=== PATIENT | female | born 1955 | race Caucasian/White ===

== ENCOUNTER 2017-06-19 05:35 | Inpatient (IN) | payer BC ==
[2017-06-08 11:10] VITALS: BMI 26.9
[~2017-06-19 05:35] MED LIST: ACETAMINOPHEN TAB 500 MG TAB PO ONE; DEXAMETHASONE SOD PHOSPHATE 10 MG/ML 1 ML VIAL IV ONE; HYDROmorphone 0.5 MG/0.5 ML SYRINGE IVP PRN; LIDOCAINE 1% 20 ML VIAL (10MG/ML) FOR IV START INTRADERMA PRN; MELOXICAM 7.5 MG TAB PO ONE; MIDAZOLAM 2 MG/2 ML VIAL IV PRN; ONDANSETRON 4 MG/2 ML VIAL IVP ONE; SCOPOLAMINE 1.5MG/72HR PATCH TRANSDERM ONE; TRANEXAMIC ACID 1,000 MG in SODIUM CHLORIDE 0.9% 100 ML IVPB ONE; VANCOMYCIN 1,000 MG in SODIUM CHLORIDE 0.9% 250 ML IVPB ONE
[2017-06-19] MEDS ORDERED: LIDOCAINE 1% 20 ML VIAL (10MG/ML) FOR IV START INTRADERMA ONE (06:12)
[2017-06-19] MEDS: LACTATED RINGERS 1,000 ML IV SCH ×2 (06:12→19:37)
[2017-06-19 06:28] LABS: Appearance,Urine Clear (Clear); Bilirubin,Urine Negative (Negative); Glucose,Urine (UA) Negative (Negative); Ketones,Urine Negative (Negative); Leukocyte Esterase,Urine Small (Negative); Mucus,Urine Few /hpf; Nitrite,Urine Negative (Negative); Particle Count 4029; Protein,Urine Trace (Negative); RBC,Urine 2 /hpf (0-5); Specific Gravity,Urine 1.016 (1.001-1.035); Squamous Epithelial Cell,Urine 1 /hpf (0-4); UA Billing (MACRO vs. MICRO) MICRO; Urobilinogen,Urine <2.0 mg/dL (<2.0); WBC,Urine 6 /hpf (0-5)
[2017-06-19] MEDS ORDERED: LIDOCAINE 1% INJ 10MG/ML (20 ML MDV) ONE (09:10)
[2017-06-19] MEDS ORDERED: MIDAZOLAM 2 MG/2 ML VIAL ONE (09:10)
[2017-06-19] MEDS ORDERED: fentaNYL (PF) 50 MCG/ML 2 ML AMP ONE (09:10)
[2017-06-19] MEDS ORDERED: PROPOFOL 10 MG/ML 20 ML VIAL IV ONE (09:10)
[2017-06-19] MEDS ORDERED: HYDROmorphone (PF) 1 MG/ML ONE (09:10)
[2017-06-19] MEDS ORDERED: diphenhydrAMINE 50 MG/ML 1 ML VIAL ONE (09:10)
[2017-06-19] MEDS ORDERED: ROPIVACAINE 246.25 MG, EPINEPHrine 0.5 MG, KETOROLAC 30 MG, cloNIDine HCL/PF 80 MCG, WA... MISCELLANE ONE ×5 (09:17)
[2017-06-19] MEDS ORDERED: ceFAZolin 3,000 MG in SODIUM CHLORIDE 0.9% IRRIGATIO 3,000 ML IRRIGATION ONE (10:51)
[2017-06-19] MEDS ORDERED: LACTATED RINGERS 1,000 ML IV ONE (11:02)
--- NOTE | 2017-06-19 11:28 | P.OP ---
Date of Procedure: 06/19/17 Procedure(s) Performed: PREOPERATIVE DIAGNOSIS: 1. Left hip severe osteoarthritis 2. Relative limb length inequality secondary to severe scoliosis POSTOPERATIVE DIAGNOSIS: Left hip severe osteoarthritis 2. Relative limb length inequality secondary to severe scoliosis OPERATION: Left hip total replacement arthroplasty (uncemented implantation with metal on ceramic articulation). ANESTHESIA: Spinal ESTIMATED BLOOD LOSS: 150 ml. WIRE FRAME MAKER: Akosua Hernandez PA-C (assistance with: patient positioning, retraction, exposure, hemostasis, leg positioning, implantation, irrigation, closure, dressing) COMPLICATIONS: None apparent. COMPONENTS IMPLANTED: Errol continuum acetabular cup with cluster holes; continuum longevity 15 elevated liner, 32 mm id; Errol VerSys Fiber Metal stem ; VerSys 32 mm femoral head with +7 mm neck length extension INDICATIONS: Marta is a 61-year-old female with significant end-stage osteoarthritis involving the left hip and commensurate severe symptoms. She presents to the operating room today for total hip replacement. Of note, she has a relative limb length inequality with the right leg being longer than the left by approximately 1.5 cm. I have discussed the steps of the operation as well as potential risks and complications as being inclusive of, but not limited to: Leading, infection, scarring, discomfort, or vessel and/or nerve damage, need for further surgery, loosening, dislocation, wear, osteolysis, limb length inequality, fracture, blood clot, pulmonary embolism, , persistent limp, and other risks. The patient is aware these risks and wishes to proceed with surgery and has signed a consent form. PROCEDURE: After appropriate consent was obtained, the patient was taken to the operating room and placed in supine position. Spinal anesthetic was administered and after confirmation of adequate anesthesia, the patient was placed into the lateral decubitus position with the left side up. Care was taken to make sure that all pressure points were adequately padded and he was stabilized to the table with a [place] hip positioner. The left hip was prepped and draped in the usual aseptic fashion using a combination of ChloraPrep and alcohol. [place] drape was used for the case and the patient received intravenous antibiotics prior to the incision. "Time out" was called , confirming patient identity, side, procedure, availability of implants and administration of antibiotics. Vancomycin was administered over 2 hours with the infusion completing within a few minutes of incision. The incision was created directly over the greater trochanter and carried slightly posteriorly for a posterior approach to the hip. The incision was then deepened down to subcutaneous tissue and fascia kamini. Fascia kamini was split in line with the incision and split proximally along the fibers of the gluteus bradley. The underlying fibers of the muscle were teased apart using finger dissection and bleeding vessels were picked up and coagulated. Retractor was then placed posteriorly consisting of a blunt [place]. The short external rotators and capsule were exposed using good visualization of the attachment of the external rotators to the femur was established. The short external rotators and capsule were released using electrocautery from their femoral attachments. A hockey stick shaped incision was created in the capsule. Joint fluid was evacuated and the patient's hip was able to be dislocated fairly easily. The patient's femoral head was severely arthritic with eburnated bone present and a 360 degrees hsu of osteophytes. The femoral neck cut was created approximately 1 cm superior to the lesser trochanter using a reciprocating saw. The femoral head and neck fragment was removed and attention was then directed to the acetabulum. An anterior acetabular retractor was applied followed by posterior retraction of the capsule with a [place] retractor. This afforded good visualization into the acetabular cavity. Soft tissue was removed and residual cartilage within the acetabular vault was removed using a curette. Labrum was removed using a long-handled knife. Attention was then directed to reaming. The size 44 reamer was used first, followed by increasing increments until the final size reamer was used. Please see the implantation sheet for exact sizes used for the components. Once the final reamer had been utilized to expand the socket it was noted that there was a good supportive bone around the acetabular socket and no further reaming needed to be performed. The trial the same size as the last reamer used was then impacted into the acetabular vault and found to have good fit. The acetabular component, one size (2mm) greater than the trial was then called for. The cluster holes were placed posteriorly and the component was impacted in a position of approximately 40 degrees abduction and 20 degrees anteversion. This matched this patient's [place] anteversion and it was noted that the cup had excellent stability without need for additional screw fixation. Attention was then directed to the acetabular liner. The anteversion and abduction angle of the component was noted to be very good. A 15 elevated liner was used and locked into position. Osteophytes around the posterior and inferior aspect of the acetabulum were trimmed as necessary to prevent any impingement. Attention was then directed back to the proximal femur. Retractors were placed around the proximal femur and box osteotome was used followed by canal finder and trochanteric reamer. Cylindrical reaming was performed. Progressive broaching was then performed starting with a #10 broach and progressing final size, in a position of 15 degrees anteversion. [place] anteversion was within 5 degrees of stem position. The final size broach had excellent fit and fill of the patient's metaphysis and diaphysis. Trial reduction was then performed starting with size 32 mm femoral head and various neck combination of stability , limb length equality, and soft tissue tension. Trial components were then removed. The canal was lavaged and the final size femoral stem component was impacted into position. The implant fit very well and had excellent stability. The femoral head was then impacted onto the [place] taper. Blood and debris were removed from the acetabular component and the hip was then reduced and checked for stability, limb length and soft tissue tension. These parameters found to be satisfactory, the wound was then thoroughly irrigated with normal saline. Final hemostasis was obtained using electrocautery and IV tranexamic acid, 1 g given at the time of prepping and draping, and another 1 g given at the time of closure. Local anesthetic solution consisting of ropivacaine with epinephrine, clonidine, and ketorolac was also used throughout the case targeting the capsule , fascia, and skin. Closure of the capsule was performed meticulously using #3 Vicryl suture. Four [id number] sutures were placed in the posterior capsule along with repair of the external rotators. The fascia kamini was then repaired using combination of #3 Vicryl suture in interrupted fashion and Quill and running fashion. 2-0 Vicryl suture was used for the subcutaneous tissues and 3-0 Quill for the skin. Dermabond or Steri-Strips were then applied. The patient tolerated the procedure well. There were no complications and the wound bed was dry and there was no need for drain placement. Sterile dressing was then applied and the patient was carefully removed from the operating room table , placed on the stretcher and was taken to the recovery room in stable condition. Sponge and needle counts were correct.
[2017-06-19] MEDS ORDERED: HYDROmorphone 1 MG/ML 1 ML SYRINGE IVP PRN ×2 (11:29)
[2017-06-19] MEDS ORDERED: hydrOXYzine PAMOATE 25 MG CAP PO PRN (11:29)
[2017-06-19] MEDS ORDERED: ONDANSETRON 4 MG/2 ML VIAL IVP PRN (11:29)
[2017-06-19] MEDS ORDERED: HYDROcodone/APAP 5-325MG 1 EACH TAB PO PRN (11:29)
[2017-06-19] MEDS ORDERED: MAGNESIUM HYDROXIDE 2,400 MG/10 ML CUP PO PRN (11:29)
[2017-06-19] MEDS ORDERED: NALOXONE 0.4 MG/ML 1 ML VIAL IV PRN (11:29)
--- NOTE | 2017-06-19 12:04 | XR ---
EXAMINATION TYPE: XR Hip Limited LT DATE OF EXAM: 06/19/2017 CLINICAL HISTORY: Left hip pain and osteoarthritis. TECHNIQUE: Single AP portable view of left hip is obtained immediately postoperatively. COMPARISON: None. FINDINGS: Metallic hardware from left hip arthroplasty is seen and appears satisfactory in alignment and position. There is evidence of recent surgery with subcutaneous gas noted laterally. IMPRESSION: Metallic hardware from left hip arthroplasty is satisfactory in position.
[2017-06-19] MEDS: ceFAZolin IN SWFI 2 GM/20 ML SYRINGE IVP SCH (16:50)
[2017-06-19] MEDS: ASPIRIN 325 MG TAB PO SCH (20:37)
[2017-06-19] MEDS ORDERED: SENNOSIDES-DOCUSATE SODIUM 1 EACH TAB PO SCH (21:00)
[2017-06-19] MEDS ORDERED: AMITRIPTYLINE HCL 50 MG TAB PO SCH (21:00)
[2017-06-20] MEDS: LACTATED RINGERS 1,000 ML IV SCH ×2 (00:05→05:56)
[2017-06-20] MEDS: ceFAZolin IN SWFI 2 GM/20 ML SYRINGE IVP SCH (00:09)
[2017-06-20 07:21] LABS: Basophils % (A) 0 %; CH 26.4; CHCM 31.6; Eosinophils % (A) 0 %; HCT 35.8 % (34.0-46.0); HDW 2.41; HGB 11.1 gm/dL (11.4-16.0); Luc # (Auto) 0.06; Luc % (Auto) 1; Lymphocytes # (A) 1.5 k/uL (1.0-4.8); Lymphocytes % (A) 16 %; MCH 25.9 pg (25.0-35.0); MCV 83.7 fL (80.0-100.0); Mean Platelet Volume 6.3; Monocytes # (A) 0.6 k/uL (0-1.0); Monocytes % (A) 6 %; Neutrophils # (A) 7.2 k/uL (1.3-7.7); Neutrophils % (A) 77 %; RBC 4.28 m/uL (3.80-5.40); RDW 14.2 % (11.5-15.5); WBC 9.4 k/uL (3.8-10.6); WBC (Perox) 9.46
--- NOTE | 2017-06-20 08:07 | CONS ---
CONSULTATION DATE OF CONSULTATION: 06/19/2017 REASON FOR CONSULTATION: Medical management requested by Dr. Orta. CONSULTATION: This is a pleasant 61-year-old patient of Dr. Wilson who has undergone a left total hip arthroplasty. Chronic stable medical conditions include osteoarthritis, otherwise, kidney stones diagnosed last week, scoliosis and osteogenesis imperfecta. Postprocedure, pain is relatively controlled at the operative site. No nausea, vomiting. No chest pain. No shortness of breath. Denies any cardiac history. REVIEW OF SYSTEMS: CONSTITUTIONAL: None. HEENT: None. RESPIRATORY: None. CARDIOVASCULAR: None. GASTROINTESTINAL: None. GENITOURINARY: None. MUSCULOSKELETAL: Aches and pains in the joints. DERMATOLOGICAL: None. HEMATOLOGICAL: None. LYMPHATIC: None. PSYCHIATRY: None. NEUROLOGICAL: None. PAST MEDICAL HISTORY: Osteoarthritis, kidney stones, scoliosis, osteogenesis imperfecta. PAST SURGICAL HISTORY: , hysterectomy, tonsillectomy, neck fusion, lithotripsy recently. SOCIAL HISTORY: Does not smoke or drink alcohol. . FAMILY HISTORY: Reviewed, noncontributory to presentation. HOME MEDICATIONS: Ultram 50 mg q.6 p.r.n., Macrobid 100 mg p.o. q.12, women's multivitamin 1 tablet p.o. daily, Flexeril 10 mg p.o. t.i.d. p.r.n., vitamin D3 five thousand units p.o. daily, calcium 600 mg p.o. daily, Elavil 50 mg p.o. q.h.s., Senokot S 1 tablet p.o. b.i.d., [place] 5 one to two tablets q.4 p.r.n., aspirin 325 p.o. b.i.d. started for surgery. ALLERGIES: SULFA. PHYSICAL EXAMINATION: Temperature 98.4, pulse 112, respiratory 18, blood pressure 125/68, pulse ox 99% on room air. GENERAL APPEARANCE: Average build. Propped up in bed, awake, comfortable. EYES: Pupils equal, conjunctivae normal. HEENT: Oral cavity normal. NECK: JVD not raised. Mass not palpable. RESPIRATORY: Effort normal. LUNGS: Clear. CARDIOVASCULAR: First and second sounds normal. No edema. ABDOMEN: Soft, nontender. Liver and spleen not palpable. LYMPHATIC: No lymph nodes palpable in neck or axillae. PSYCHIATRY: Alert and oriented x3, mood and affect was normal. NEUROLOGICAL: Pupils equal. Cranial nerves grossly intact. Power and sensation grossly intact. MUSCULOSKELETAL: Dressing over the left hip. Some evidence of osteoarthritis especially in the hands. INVESTIGATION: UA noted and patient's blood work from 06/13 shows a white count 6.6, hemoglobin 13.4, potassium 4.2. BUN and creatinine are normal. ASSESSMENT: 1. Left total hip arthroplasty. 2. Primary osteoarthritis. 3. Kidney stones with recent lithotripsy. 4. Scoliosis. 5. Osteogenesis imperfecta. PLAN: For DVT prophylaxis, patient is on aspirin, Venodyne boots. Other home medications are resumed. Care was discussed with the patient. The patient should follow up with Dr. Soriano on discharge. Thank you, Dr. Orta. SONJA / PHIL: [phone] /
[2017-06-20] MEDS: ASPIRIN 325 MG TAB PO SCH (08:15)
[2017-06-20] MEDS: HYDROcodone/APAP 5-325MG 1 EACH TAB PO PRN ×2 (08:16→15:16)
[2017-06-20] MEDS ORDERED: CYCLOBENZAPRINE 10 MG TAB PO PRN (08:49)
[2017-06-20] MEDS ORDERED: traMADol 50 MG TAB PO PRN (08:49)
[2017-06-20] MEDS ORDERED: MELOXICAM 7.5 MG TAB PO SCH (09:00)
--- NOTE | 2017-06-20 09:38 | P.DS ---
Providers Date of admission: 06/19/17 05:35 Expected date of discharge: 06/20/17 Attending physician: Von Orta Consults: 06/19/17 11:29 Consult Physician Routine Consulting Provider: Roshan Hopkins Consult Reason/Comments: medical management Do you want consulting provider notified?: Yes Primary care physician: Arsh Soriano - Discharge Diagnosis(es) (1) Primary localized osteoarthritis of left hip Current Visit: Yes Status: Acute (2) Status post left hip replacement Current Visit: Yes Status: Acute Hospital Course: This is a 61-year-old female with known history of degenerative arthritis of the left hip. The patient presents for evaluation. After discussion and consideration patient elects to proceed with total hip arthroplasty. The patient is seen preoperatively by Dr. Soriano and cleared for surgery. Patient is admitted to [facility] on 06/19/2017 for total left hip arthroplasty. The procedures performed without complication or sequelae. The patient is doing well postoperatively. Labs and vital signs are stable on day of discharge. On day of discharge patient's hip incision is healing well. There is minimal erythema. There is no drainage noted at this time. There is minimal soft tissue swelling to the hip and thigh. Patient has full foot and ankle motion without difficulty or pain. Neurovascular status to the left lower extremity is intact. Patient is discharged to home in good condition. Pertinent Studies: Laboratory Tests 06/20/17 06:54 WBC 9.4 RBC 4.28 Hgb 11.1 L Hct 35.8 Patient Condition at Discharge: Stable Plan - Discharge Summary Discharge Rx Participant: Yes New Discharge Prescriptions: New Aspirin 325 mg PO BID #120 tab HYDROcodone/APAP 5-325MG [[place] 5-325] 1 - 2 each PO Q4-6H PRN #90 tab PRN Reason: Pain Sennosides-Docusate Sodium [Senokot-S] 1 tab PO BID #60 tablet No Action traMADol HCL [Ultram] 50 mg PO Q6HR PRN PRN Reason: Pain Amitriptyline HCl [Elavil] 50 mg PO HS Cyclobenzaprine [Flexeril] 10 mg PO TID PRN PRN Reason: Muscle Spasm Cholecalciferol [Vitamin D3] 5,000 unit PO DAILY Multivit with Calcium,Iron,Min [Women's Multivitamin] 1 tab PO DAILY Calcium Carbonate [Calcium] 600 mg PO DAILY Nitrofurantoin Monohyd/M-Cryst [Macrobid] 100 mg PO Q12HR Discharge Medication List Amitriptyline HCl [Elavil] 50 mg PO HS 06/08/17 [History] Calcium Carbonate [Calcium] 600 mg PO DAILY 06/08/17 [History] Cholecalciferol [Vitamin D3] 5,000 unit PO DAILY 06/08/17 [History] Cyclobenzaprine [Flexeril] 10 mg PO TID PRN 06/08/17 [History] Multivit with Calcium,Iron,Min [Women's Multivitamin] 1 tab PO DAILY 06/08/17 [ History] traMADol HCL [Ultram] 50 mg PO Q6HR PRN 06/08/17 [History] Nitrofurantoin Monohyd/M-Cryst [Macrobid] 100 mg PO Q12HR 06/15/17 [History] Aspirin 325 mg PO BID #120 tab 06/19/17 [Rx] HYDROcodone/APAP 5-325MG [[place] 5-325] 1 - 2 each PO Q4-6H PRN #90 tab 06/19/17 [Rx] Sennosides-Docusate Sodium [Senokot-S] 1 tab PO BID #60 tablet 06/19/17 [Rx] Follow up Appointment(s)/Referral(s): Akosua Hernandez PAC [PHYSICIAN MAPPING SUPERVISOR] - 07/03/17 1:45 pm Activity/Diet/Wound Care/Special Instructions: toe touch weight bearing left lower extremity with walker. May shower if no drainage from incision. [facility] [id number] Discharge Disposition: HOME WITH HOME HEALTH SERVICES
[2017-06-20] MEDS ORDERED: CALCIUM CARBONATE 500 MG CHEWABLE PO SCH (12:00)
[2017-06-20] MEDS ORDERED: MULTIVITAMINS, THERA 1 EACH TAB PO SCH (12:00)
[2017-06-20] MEDS ORDERED: CHOLECALCIFEROL 1,000 UNIT TAB PO SCH (12:00)
[2017-06-20] MEDS ORDERED: SUCCINYLCHOLINE CHLORIDE 100 MG/5 ML SYR IV ONE (12:59)
[2017-06-20] MEDS ORDERED: ETOMIDATE 2 MG/ML 10 ML VIAL ONE (12:59)
[2017-06-20] MEDS ORDERED: CISATRACURIUM 2 MG/ML 5 ML VIAL IV ONE (12:59)
[2017-06-20] MEDS ORDERED: NEOSTIGMINE 1 MG/ML 10 ML VIAL ONE (12:59)
[2017-06-20] MEDS ORDERED: diphenhydrAMINE 50 MG/ML 1 ML VIAL ONE (12:59)
[2017-06-20] MEDS ORDERED: HYDROmorphone (PF) 1 MG/ML ONE (12:59)
[2017-06-20] MEDS ORDERED: LIDOCAINE 1% INJ 10MG/ML (20 ML MDV) ONE (12:59)
[2017-06-20] MEDS ORDERED: GLYCOPYRROLATE 0.2 MG/ML 2 ML VIAL ONE (12:59)
[2017-06-20] MEDS ORDERED: fentaNYL (PF) 50 MCG/ML 2 ML AMP ONE (12:59)
[2017-06-20 14:28] VITALS: BP 116/68; PULSE 104; RESP 16; TEMP 98.5
--- NOTE | 2017-06-20 14:49 | PN ---
PROGRESS NOTE DATE OF SERVICE: 06/20/17. PRESENTING COMPLAINT: Left hip surgery. INTERVAL HISTORY: Patient is status post left hip surgery, a bit tired, did not sleep too well. Some pain is present. No nausea, vomiting, did tolerate her breakfast. Did work with therapy. REVIEW OF SYSTEMS: Done for constitutional, cardiovascular, GI, pulmonary, musculoskeletal; relevant findings as above. CURRENT MEDICATIONS: Reviewed. PHYSICAL EXAMINATION: Temperature 98, pulse 96, respirations 16, blood pressure 136/68, pulse ox 99% on room air. GENERAL APPEARANCE: Lying in bed comfortable. EYES: Pupils equal. Conjunctivae normal. NECK: JVD not raised. Mass not palpable. RESPIRATORY: Effort normal. Lungs are clear. CARDIOVASCULAR: 1st and 2nd. No edema. ABDOMEN: Soft, nontender. Liver and spleen not palpable. PSYCHIATRY: Alert, oriented x3. Mood and affect normal. INVESTIGATIONS: White count 9.4. ASSESSMENT: 1. Left total hip arthroplasty. 2. Primary osteoarthritis. 3. Kidney stones with recent lithotripsy. 4. Scoliosis. 5. Osteogenesis imperfecta. 6. Acute blood-loss anemia as expected from surgery. PLAN: Care was discussed with the patient. Continue current medication and treatment plan. Thank you, Dr. Orta. MMHARRIETL / KYLEEN: [phone] /
[2017-06-20] MEDS ORDERED: TEMAZEPAM 15 MG CAP PO PRN (22:00)
== END 2017-06-20 15:55 | disposition home health service (06) | DRG 470 ==
LOC: 2ORMAIN 05:35 → 3SUR 11:25
PROVIDERS: ADMIT Orthopaedic Surgery; ATTEND Orthopaedic Surgery
PROC: 0SRB06A Replacement of Left Hip Joint with Oxidized Zirconium on Polyethylene Synthetic Substitute, Uncemented, Open Approach (ICD-10-PCS; principal; 2017-06-19 09:00)
DX: M16.12 Unilateral primary osteoarthritis, left hip (principal); Q78.0 Osteogenesis imperfecta; M41.9 Scoliosis, unspecified; M25.752 Osteophyte, left hip; Z90.710 Acquired absence of both cervix and uterus; Z98.1 Arthrodesis status; Z90.49 Acquired absence of other specified parts of digestive tract; Z79.899 Other long term (current) drug therapy; Z79.891 Long term (current) use of opiate analgesic; Z88.2 Allergy status to sulfonamides; Z79.82 Long term (current) use of aspirin; Z87.442 Personal history of urinary calculi; Z85.828 Personal history of other malignant neoplasm of skin; Z83.3 Family history of diabetes mellitus; Z82.49 Family history of ischemic heart disease and other diseases of the circulatory system
CPT/HCPCS: 73501; 81001; 85025; 86850; 86900; 86901; 88300

== ENCOUNTER 2022-12-06 13:05 | Inpatient (IN) | payer BC, MEDICARE, OTHER ==
[2022-12-06] MEDS ORDERED: DILTIAZEM DRIP BOLUS FROM BAG 1 MG SOLN IV ONE ×2 (13:19→15:00)
[2022-12-06] MEDS ORDERED: SODIUM CHLORIDE 0.9% 1,000 ML IV STA (13:19)
--- NOTE | 2022-12-06 13:20 | ED ---
Arrhythmia/Palpitations HPI - General Chief Complaint: Arrhythmia/Palpitations Stated Complaint: AFib Time Seen by Provider: 12/06/22 13:12 Source: patient, EMS, RN notes reviewed, old records reviewed Mode of arrival: EMS Limitations: no limitations - History of Present Illness Initial Comments: This is a 67-year-old female to the ER for evaluation patient presents with a syncopal event syncope. Had positive loss of consciousness prior to fall. Pratibha celeste presents here today with symptoms of feeling very lightheaded weak and short of breath and those were the same symptoms that she is experiencing prior to falling and patient does believe she passed out prior to falling. MD Complaint: rapid heart beat, "heart racing" -: unknown Arrhythmia History: atrial fibrillation (Patient is found to be nature fibrillation here in the ER no prior history) Associated Symptoms: syncope Treatments Prior to Arrival: other (0) - Related Data Home Medications Medication Instructions Recorded Confirmed Amitriptyline HCl [Elavil] 50 mg PO BID 06/08/17 12/06/22 Cyclobenzaprine [Flexeril] 10 mg PO BID 06/08/17 12/06/22 Multivit with Calcium,Iron,Min 1 tab PO DAILY 06/08/17 12/06/22 [Women's Multivitamin] Ascorbic Acid [Vitamin C] 1,000 mg PO BID 12/06/22 12/06/22 Biotin 100mg 100 mg PO BID 12/06/22 12/06/22 Co Q-10 100mg 100 mg PO DAILY 12/06/22 12/06/22 Lactobacillus Acidophilus 1 cap PO BID 12/06/22 12/06/22 [Acidophilus Probiotic] Naproxen Sodium [Aleve] 220 mg PO BID 12/06/22 12/06/22 Potassium Citrate Otc 1080mg 2 tab PO BID 12/06/22 12/06/22 Pravastatin Sodium [Pravachol] 20 mg PO HS 12/06/22 12/06/22 lisinopriL [Zestril] 10 mg PO HS 12/06/22 12/06/22 Allergies Allergy/AdvReac Type Severity Reaction Status Date / Time Sulfa (Sulfonamide Allergy Unknown Verified 06/19/17 12:28 Antibiotics) Review of Systems ROS Statement: Those systems with pertinent positive or pertinent negative responses have been documented in the HPI. ROS Other: All systems not noted in ROS Statement are negative. Past Medical History Past Medical History: Cancer, Musculoskeletal Disorder, Osteoarthritis (OA) Additional Past Medical History / Comment(s): hx. 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, recent UTI-took couple courses of antibiotics-currently on one for 5 days History of Any Multi-Drug Resistant Organisms: None Reported Past Surgical History: Section, Hysterectomy, Tonsillectomy Additional Past Surgical History / Comment(s): neck fusion, colonoscopy, lithotripsy 06-14-17 related to recent UTI Past Anesthesia/Blood Transfusion Reactions: No Reported Reaction Past Psychological History: No Psychological Hx Reported Smoking Status: Never smoker Past Alcohol Use History: None Reported Past Drug Use History: Marijuana - Past Family History Mother Family Medical History: No Reported History General Exam Limitations: no limitations General appearance: alert, in no apparent distress, anxious Head exam: Present: normocephalic, normal inspection. Absent: atraumatic (Laceration occipital scalp 2 cm) Eye exam: Present: normal appearance, PERRL, EOMI. Absent: scleral icterus, conjunctival injection, periorbital swelling ENT exam: Present: normal exam, mucous membranes moist Neck exam: Present: normal inspection. Absent: tenderness, meningismus, lymphadenopathy Respiratory exam: Present: normal lung sounds bilaterally. Absent: respiratory distress, wheezes, rales, rhonchi, stridor Cardiovascular Exam: Present: tachycardia, irregular rhythm, normal heart sounds. Absent: systolic murmur, diastolic murmur, rubs, gallop, clicks GI/Abdominal exam: Present: soft, normal bowel sounds. Absent: distended, tenderness, guarding, rebound, rigid Extremities exam: Present: normal inspection, full ROM, normal capillary refill. Absent: tenderness, pedal edema, joint swelling, calf tenderness Back exam: Present: normal inspection Neurological exam: Present: alert, oriented X3, CN II-XII intact Psychiatric exam: Present: normal affect, normal mood Skin exam: Present: warm, dry, intact, normal color. Absent: rash Course Vital Signs 12/06/22 12/06/22 12/06/22 13:08 14:00 14:15 Temperature 97.5 F L Pulse Rate 186 H 130 H 168 H Pulse Rate [ Left] Respiratory 20 20 20 Rate Blood Pressure 137/104 114/97 118/81 Blood Pressure [Right Arm] O2 Sat by Pulse 95 97 98 Oximetry 12/06/22 12/06/22 12/06/22 14:30 14:45 15:00 Temperature Pulse Rate 170 H 149 H 134 H Pulse Rate [ Left] Respiratory 43 H 42 H 11 L Rate Blood Pressure 122/75 124/75 132/84 Blood Pressure [Right Arm] O2 Sat by Pulse 97 100 Oximetry 12/06/22 12/06/22 12/06/22 15:15 15:30 15:45 Temperature Pulse Rate 124 H 129 H Pulse Rate [ Left] Respiratory 31 H 31 H Rate Blood Pressure 111/88 125/96 128/75 Blood Pressure [Right Arm] O2 Sat by Pulse Oximetry 12/06/22 12/06/22 12/06/22 16:00 16:15 16:30 Temperature 96.9 F L Pulse Rate 116 H 126 H 98 Pulse Rate [ 101 H Left] Respiratory 16 20 23 Rate Blood Pressure 127/76 103/89 151/104 Blood Pressure 114/81 [Right Arm] O2 Sat by Pulse 96 Oximetry - Reevaluation(s) Reevaluation #1: 12/06/22 20:25 Medical record is reviewed Reevaluation #2: 12/06/22 20:25 Patient is informed results and questions answered Reevaluation #3: 12/06/22 20:25 Symptoms are significantly improved here in the ER Reevaluation #4: 12/06/22 20:25 Was pt. sent in by a medical professional or institution? @ -no Did you speak to anyone other than the patient for history? @ -no Did you review nursing and triage notes? @ -agree Were old charts reviewed? @ -no Differential Diagnosis? @ -syncope EKG interpreted by me (3pts min.)? @ -yes X-rays interpreted by me (1pt min.)? @ -yes CT interpreted by me (1pt min.)? @ -no U/S interpreted by me (1pt. min.)? @ -no What testing was considered but not performed? (CT, X-rays, U/S, labs)? Why? @ -no What meds were considered but not given? Why? @ -no Did you discuss the management of the patient with other professionals? @ -no Did you reconcile home meds? @ -yes Was smoking cessation discussed for >3mins.? @ -no Was critical care preformed (if so, how long)? @ -yes Were there social determinants of health that impacted care today? How? (Homelessness, low income, unemployed, alcoholism, drug addiction, transportation, low edu. Level, literacy, decrease access to med. care, senior living, rehab)? @ -no Was there de-escalation of care discussed even if they declined? (Discuss DNR or withdrawal of care, Hospice)? @ -no What co-morbidities impacted this encounter? (DM, HTN, Smoking, COPD, CAD, Cancer, CVA,, sleep apnea, morbid obesity) @ -no Was patient admitted / discharged? @ -admit Undiagnosed new problem with uncertain prognosis? @ -no Drug Therapy requiring intensive monitoring for toxicity (Heparin, Nitro, Insulin, Cardizem)? @ -no Were any procedures done? @ -no Diagnosis/symptom? @ -atrial fibrillation w RVR Acute, or Chronic, or Acute on Chronic? @ -acute Uncomplicated (without systemic symptoms) or Complicated (systemic symptoms)? @ -uncomplicated Side effects of treatment? @ -no Exacerbation, Progression, or Severe Exacerbation] @ -no Poses a threat to life or bodily function? @ -no Reevaluation #5: 12/06/22 20:25 Differential Syncope: Valvular disease, hypertrophic cardiomyopathy, pulmonary embolism, tamponade, tachycardia, bradycardia, NE, hypovolemia, hemorrhage, dissection, anemia, intracranial hemorrhage, seizure, hypoglycemia, carbon monoxide poisoning, this is not meant to be an all-inclusive list. - Consultations Consultation #1: Spoke with admitting physicians agreeable with this patient, [facility] EKG Findings - EKG Comments: EKG Findings:: EKG is A. fib with RVR 174 QRS 77 QTC 337 Procedures - Laceration Laceration #1 Consent Obtained: verbal consent Indication: laceration Site: scalp Size (cm): 2 Description: stellate Type of Sutures: other (Coni) Patient Tolerated Procedure: well Medical Decision Making - Medical Decision Making 67 female DF for evaluation. Patient is a syncopal event which created a fall resulting in occipital laceration which is repaired here in the ER patient also is found him in atrial fibrillation with RVR cause of syncope and will admit for cardiology consultation - Lab Data Result diagrams: 12/06/22 13:28 12/06/22 13:28 Lab Results 12/06/22 12/06/22 12/06/22 Range/Units 13:28 13:28 13:28 WBC 6.8 (3.8-10.6) k/uL RBC 5.31 (3.80-5.40) m/uL Hgb 14.5 (11.4-16.0) gm/dL Hct 43.1 (34.0-46.0) % MCV 81.2 (80.0-100.0) fL MCH 27.3 (25.0-35.0) pg MCHC 33.7 (31.0-37.0) g/dL RDW 14.0 (11.5-15.5) % Plt Count 233 (150-450) k/uL MPV 7.3 Neutrophils % 76 % Lymphocytes % 17 % Monocytes % 5 % Eosinophils % 2 % Basophils % 0 % Neutrophils # 5.2 (1.3-7.7) k/uL Lymphocytes # 1.1 (1.0-4.8) k/uL Monocytes # 0.3 (0-1.0) k/uL Eosinophils # 0.1 (0-0.7) k/uL Basophils # 0.0 (0-0.2) k/uL PT 9.8 (9.0-12.0) sec INR 0.9 (<1.2) APTT 19.8 L (22.0-30.0) sec Sodium 141 (137-145) mmol/L Potassium 3.9 (3.5-5.1) mmol/L Chloride 108 H (98-107) mmol/L Carbon Dioxide 24 (22-30) mmol/L Anion Gap 9 mmol/L BUN 21 H (7-17) mg/dL Creatinine 0.63 (0.52-1.04) mg/dL Est GFR (CKD-EPI)AfAm >90 (>60 ml/min/1.73 sqM) Est GFR (CKD-EPI)NonAf >90 (>60 ml/min/1.73 sqM) Glucose 98 (74-99) mg/dL Plasma Lactic Acid Douglas (0.7-2.0) mmol/L Calcium 9.2 (8.4-10.2) mg/dL Phosphorus 2.7 (2.5-4.5) mg/dL Magnesium 1.8 (1.6-2.3) mg/dL Total Bilirubin 0.5 (0.2-1.3) mg/dL AST 27 (14-36) U/L ALT 20 (4-34) U/L Alkaline Phosphatase 68 (38-126) U/L Troponin I (0.000-0.034) ng/mL Total Protein 6.7 (6.3-8.2) g/dL Albumin 4.2 (3.5-5.0) g/dL 12/06/22 12/06/22 Range/Units 13:28 13:31 WBC (3.8-10.6) k/uL RBC (3.80-5.40) m/uL Hgb (11.4-16.0) gm/dL Hct (34.0-46.0) % MCV (80.0-100.0) fL MCH (25.0-35.0) pg MCHC (31.0-37.0) g/dL RDW (11.5-15.5) % Plt Count (150-450) k/uL MPV Neutrophils % % Lymphocytes % % Monocytes % % Eosinophils % % Basophils % % Neutrophils # (1.3-7.7) k/uL Lymphocytes # (1.0-4.8) k/uL Monocytes # (0-1.0) k/uL Eosinophils # (0-0.7) k/uL Basophils # (0-0.2) k/uL PT (9.0-12.0) sec INR (<1.2) APTT (22.0-30.0) sec Sodium (137-145) mmol/L Potassium (3.5-5.1) mmol/L Chloride (98-107) mmol/L Carbon Dioxide (22-30) mmol/L Anion Gap mmol/L BUN (7-17) mg/dL Creatinine (0.52-1.04) mg/dL Est GFR (CKD-EPI)AfAm (>60 ml/min/1.73 sqM) Est GFR (CKD-EPI)NonAf (>60 ml/min/1.73 sqM) Glucose (74-99) mg/dL Plasma Lactic Acid Douglas 1.4 (0.7-2.0) mmol/L Calcium (8.4-10.2) mg/dL Phosphorus (2.5-4.5) mg/dL Magnesium (1.6-2.3) mg/dL Total Bilirubin (0.2-1.3) mg/dL AST (14-36) U/L ALT (4-34) U/L Alkaline Phosphatase (38-126) U/L Troponin I <0.012 (0.000-0.034) ng/mL Total Protein (6.3-8.2) g/dL Albumin (3.5-5.0) g/dL - Radiology Data Radiology results: report reviewed (CT brain C-spine chest and pelvis x-ray are negative for traumatic injury), image reviewed Critical Care Time Critical Care Time: Yes Total Critical Care Time: 31 Disposition Clinical Impression: Atrial fibrillation, Atrial fibrillation with RVR, Palpitations, Tachycardia, Syncope, Laceration of head Disposition: ADMITTED IP TO THIS [facility] Condition: Serious Is patient prescribed a controlled substance at d/c from ED?: No Time of Disposition: 14:25
[2022-12-06] MEDS ORDERED: DILTIAZEM 125 MG in SODIUM CHLORIDE 0.9% 100 ML IV SCH (13:30)
[2022-12-06 13:46] LABS: Basophils % (A) 0 %; Eosinophils # (A) 0.1 k/uL (0-0.7); Eosinophils % (A) 2 %; HCT 43.1 % (34.0-46.0); HGB 14.5 gm/dL (11.4-16.0); Lymphocytes # (A) 1.1 k/uL (1.0-4.8); Lymphocytes % (A) 17 %; MCH 27.3 pg (25.0-35.0); MCHC 33.7 g/dL (31.0-37.0); MCV 81.2 fL (80.0-100.0); Mean Platelet Volume 7.3; Monocytes # (A) 0.3 k/uL (0-1.0); Monocytes % (A) 5 %; Neutrophils # (A) 5.2 k/uL (1.3-7.7); Neutrophils % (A) 76 %; Platelet Count 233 k/uL (150-450); RBC 5.31 m/uL (3.80-5.40); WBC 6.8 k/uL (3.8-10.6)
[2022-12-06 13:55] LABS: INR 0.9 (<1.2); Prothrombin Time 9.8 sec (9.0-12.0)
[2022-12-06 14:02] LABS: ALT 20 U/L (4-34); AST 27 U/L (14-36); African American GFR (CKD) >90 (>60 ml/min/1.73 sqM); Albumin 4.2 g/dL (3.5-5.0); Alkaline Phosphatase 68 U/L (38-126); Anion Gap 9 mmol/L; Blood Urea Nitrogen 21 mg/dL (7-17); Calcium 9.2 mg/dL (8.4-10.2); Carbon Dioxide 24 mmol/L (22-30); Chloride 108 mmol/L (98-107); Glucose 98 mg/dL (74-99); Magnesium 1.8 mg/dL (1.6-2.3); Non-African American GFR(CKD) >90 (>60 ml/min/1.73 sqM); Phosphorus 2.7 mg/dL (2.5-4.5); Potassium 3.9 mmol/L (3.5-5.1); Sodium 141 mmol/L (137-145); Total Bilirubin 0.5 mg/dL (0.2-1.3); Total Protein 6.7 g/dL (6.3-8.2)
[2022-12-06 14:05] LABS: Partial Thromboplastin Time 19.8 sec (22.0-30.0)
--- NOTE | 2022-12-06 14:06 | CT ---
EXAMINATION TYPE: CT brain marvin nguyễn con DATE OF EXAM: 12/06/2022 COMPARISON: None HISTORY: FALL CT DLP: 1429.[address] of the brain was performed. The ventricles, basal cisterns and sulci overlying the cerebral convexities demonstrate mild enlargem ent. There is no evidence for intracranial hemorrhage or sulcal effacement. There is decreased attenuatio n about the periventricular white matter and deep white matter of both cerebral hemispheres, compatib le with chronic small vessel ischemia. No mass effects are seen. If symptoms persist consider MRI. Osseous calvarium is intact. IMPRESSION: 1. Age related atrophic and chronic small vessel ischemic change without acute intracranial process seen at this time. CT Cervical Spine: Unenhanced CT of the cervical spine was performed with bone and soft tissue window settings submitted . Coronal and sagittal reconstruction is obtained. There is normal alignment and prevertebral soft tissues. No evidence for acute cervical fracture . AC DF changes C5-6 C6-7 with normal alignment. Biapical scarring. IMPRESSION: 1. No evidence for acute fracture or subluxation of the cervical spine.
--- NOTE | 2022-12-06 14:14 | XR ---
EXAMINATION TYPE: XR chest 1V DATE OF EXAM: 12/06/2022 COMPARISON: NONE HISTORY: Pain TECHNIQUE: Single frontal view of the chest is obtained. FINDINGS: There is no focal air space opacity, pleural effusion, or pneumothorax seen. The cardiac silhouette size is mildly enlarged. The osseous structures are intact. Postsurgical changes Cervical spine IMPRESSION: Cardiomegaly
--- NOTE | 2022-12-06 14:17 | XR ---
EXAMINATION TYPE: XR pelvis AP view DATE OF EXAM: 12/06/2022 Comparison: None Clinical History: 67-year-old female with pain after fall Findings: Partially visualized left total hip arthroplasty. Visualized portions appear intact. Right hip is int act. SI joints are symmetric and pubis symphysis is intact. No acute fracture identified. Impression: The visualized portion of the left hip total arthroplasty appears intact. The distal stem component i s outside the field of view. No acute osseous abnormality seen.
[2022-12-06] MEDS ORDERED: HEPARIN SODIUM 1,000 UN/ML (10ML VL) IV PRN (14:35)
[2022-12-06] MEDS ORDERED: HEPARIN SODIUM 1,000 UN/ML (10ML VL) IV ONE (14:35)
[2022-12-06] MEDS ORDERED: NALOXONE 0.4 MG/ML 1 ML VIAL IV PRN (14:35)
[2022-12-06] MEDS ORDERED: ONDANSETRON 4 MG/2 ML VIAL IVP PRN (14:35)
[2022-12-06] MEDS ORDERED: HEPARIN SOD,PORK IN 0.45% NACL 25,000 UNIT in 0.45% NACL 1 250ML.BAG IV SCH (14:45)
[2022-12-06] MEDS ORDERED: METOPROLOL TARTRATE 50 MG TAB PO STA (15:10)
[2022-12-06] MEDS ORDERED: ACETAMINOPHEN TAB 325 MG TAB PO PRN (18:28)
[2022-12-06] MEDS: HYDROcodone/APAP 5-325MG 1 EACH TAB PO PRN (20:23)
[2022-12-06] MEDS: CYCLOBENZAPRINE 10 MG TAB PO SCH (20:23)
[2022-12-06] MEDS: ASCORBIC ACID 500 MG TAB PO SCH (20:23)
[2022-12-06] MEDS: AMITRIPTYLINE HCL 50 MG TAB PO SCH (20:23)
[2022-12-06] MEDS ORDERED: lisinopriL 10 MG TAB PO SCH (21:00)
[2022-12-06] MEDS ORDERED: PRAVASTATIN SODIUM 20 MG TAB PO SCH (21:00)
--- NOTE | 2022-12-06 23:29 | HP ---
HISTORY AND PHYSICAL CHIEF COMPLAINT: Atrial fibrillation, fall, and scalp injury. HISTORY OF PRESENT ILLNESS: This is a 67-year-old woman with a past medical history of DJD and history of cancer, who apparently had a fall. The patient was found to have atrial fibrillation with fast ventricular rate. The patient also had bleeding from the scalp injury, and the patient was closely monitored. CT scan is awaited. There is no history of any fever, rigors, or chills. PAST MEDICAL HISTORY: History of DJD and history of skin cancer. Rest of the history and rest of the chart are also reviewed. HOME MEDICATIONS: Reviewed, Ultram. Doses and rest of the medications are noted. ALLERGIES: Sulfa. FAMILY HISTORY: No history of heart disease or strokes in the family. SOCIAL HISTORY: Occasional THC. REVIEW OF SYSTEMS: A 14-point review is negative as mentioned earlier. PHYSICAL EXAMINATION: VITAL SIGNS: Pulse is 168, irregular; blood pressure 118/80, respirations 20. HEENT: Conjunctivae are normal. Otherwise, some bleeding from the scalp injury posteriorly and near the right lateral ear posteriorly. NECK: No jugular venous distention. CARDIOVASCULAR: S1 and S2. Irregular. Tachycardic. RESPIRATORY: No rhonchi. No crackles. ABDOMEN: Soft and nontender. LEGS: No edema. No swelling. NERVOUS SYSTEM: No focal deficits. SKIN: As mentioned. JOINTS: No active deforming arthropathy. LABORATORY DATA: Noted. ASSESSMENT: 1. Atrial fibrillation with fast ventricular rate. 2. Possible syncope and fall secondary to atrial fibrillation. 3. Scalp injury. 4. Degenerative joint disease. RECOMMENDATIONS AND DISCUSSION: In this 67-year-old woman, who presented with multiple complex medical issues, we will monitor the patient closely, continue with current medications, Cardizem drip, Cardiology consultation, 2D echo with Doppler. Resume the home medications once they are confirmed. The prognosis is guarded because of multiple complex medical issues. Further recommendations to follow. CT scan is awaited. MMODL / IJN: [id number] /
[2022-12-07] MEDS: ASCORBIC ACID 500 MG TAB PO SCH (08:28)
[2022-12-07] MEDS: CYCLOBENZAPRINE 10 MG TAB PO SCH (08:28)
[2022-12-07] MEDS: AMITRIPTYLINE HCL 50 MG TAB PO SCH (08:28)
[2022-12-07 08:31] VITALS: TEMP 97.7
[2022-12-07 08:50] LABS: Basophils % (A) 0 %; Eosinophils # (A) 0.2 k/uL (0-0.7); Eosinophils % (A) 2 %; HCT 41.4 % (34.0-46.0); HGB 13.4 gm/dL (11.4-16.0); Lymphocytes # (A) 1.8 k/uL (1.0-4.8); Lymphocytes % (A) 22 %; MCHC 32.3 g/dL (31.0-37.0); MCV 83.4 fL (80.0-100.0); Mean Platelet Volume 7.5; Monocytes # (A) 0.4 k/uL (0-1.0); Monocytes % (A) 5 %; Neutrophils # (A) 5.6 k/uL (1.3-7.7); Neutrophils % (A) 70 %; Platelet Count 221 k/uL (150-450); RBC 4.97 m/uL (3.80-5.40); RDW 14.1 % (11.5-15.5)
[2022-12-07] MEDS ORDERED: MULTIVITAMINS, THERA 1 EACH TAB PO SCH (09:00)
[2022-12-07 09:01] LABS: ALT 20 U/L (4-34); AST 28 U/L (14-36); African American GFR (CKD) >90 (>60 ml/min/1.73 sqM); Albumin 3.8 g/dL (3.5-5.0); Alkaline Phosphatase 56 U/L (38-126); Anion Gap 7 mmol/L; Blood Urea Nitrogen 15 mg/dL (7-17); Calcium 8.9 mg/dL (8.4-10.2); Carbon Dioxide 26 mmol/L (22-30); Chloride 108 mmol/L (98-107); Glucose 86 mg/dL (74-99); Non-African American GFR(CKD) >90 (>60 ml/min/1.73 sqM); Sodium 141 mmol/L (137-145); Total Bilirubin 0.5 mg/dL (0.2-1.3); Total Protein 6.1 g/dL (6.3-8.2)
[2022-12-07] MEDS: HYDROcodone/APAP 5-325MG 1 EACH TAB PO PRN (09:33)
--- NOTE | 2022-12-07 09:58 | CA ---
Transthoracic Echo Report Name: Marta Bourgeois Age: 67 Gender: F : 1955 Exam Date: 12/07/2022 08:02 Exam Location: [place] [facility] Ht (in): 61 Wt (lb): 146 Ordering Physician: Britta Shaffer Attending/Referring Phys: Event Marketing Manager Desiree Hare RDCS Procedure CPT: Indications: new onset a-fib, syncope Cardiac Hx: Technical Quality: Fair Contrast 1: Total Dose (mL): Contrast 2: Total Dose (mL): MEASUREMENTS (Male / Female) Normal Values 2D ECHO LV Diastolic Diameter PLAX 4.6 cm 4.2 - 5.9 / 3.9 - 5.3 cm LV Systolic Diameter PLAX 2.9 cm IVS Diastolic Thickness 1.3 cm 0.6 - 1.0 / 0.6 - 0.9 cm LVPW Diastolic Thickness 1.1 cm 0.6 - 1.0 / 0.6 - 0.9 cm LV Relative Wall Thickness 0.5 RV Internal Dim ED PLAX 3.1 cm LA Systolic Diameter LX 3.1 cm 3.0 - 4.0 / 2.7 - 3.8 cm LV Diastolic Volume MOD 4C 100.1 cm??? LV Systolic Volume MOD 4C 56.6 cm??? LV Ejection Fraction MOD 4C 43.5 % LV Diastolic Length 4C 8.3 cm LV Systolic Length 4C 7.0 cm LV Diastolic Volume MOD 2C 108.4 cm??? LV Systolic Volume MOD 2C 50.3 cm??? LV Ejection Fraction MOD 2C 53.6 % LV Diastolic Length 2C 9.2 cm LV Systolic Length 2C 7.7 cm LA Volume 54.5 cm??? 18 - 58 / 22 - 52 cm??? M-MODE Aortic Root Diameter MM 3.4 cm MV E Point Septal Separation 1.4 cm AV Cusp Separation MM 2.2 cm DOPPLER AV Peak Velocity 146.5 cm/s AV Peak Gradient 8.6 mmHg MV Area PHT 3.3 cm??? Mitral E Point Velocity 83.1 cm/s Mitral A Point Velocity 75.0 cm/s Mitral E to A Ratio 1.1 MV Deceleration Time 231.0 ms FINDINGS Left Ventricle Left ventricular ejection fraction is estimated at 55-60 %. Left ventricular cavity size normal. Mildly increased septal wall thickness. Mildly increased posterior wall thickness. Normal left ventricular wall motion. Right Ventricle Normal right ventricular size and function. No TR unable to estimate the right ventricular systolic pressure. Right Atrium Normal right atrial size. Left Atrium Mildly increased left atrial volume. Mitral Valve Structurally normal mitral valve. No mitral stenosis, regurgitation or prolapse. Aortic Valve Aortic valve not well visualized. No aortic valve stenosis or regurgitation. Tricuspid Valve Structurally normal tricuspid valve. No tricuspid regurgitation. Pulmonic Valve Structurally normal pulmonic valve. Pericardium Normal pericardium. No pericardial effusion. Aorta Normal size aortic root and proximal ascending aorta. CONCLUSIONS Normal LV systolic function. Mild concentric LVH Previewed by: Dr. Gilson Tran MD (Electronically Signed) Final Date: 07 December 2022 09:57
[2022-12-07] MEDS ORDERED: METOPROLOL SUCCINATE (ER) 25 MG TAB.ER.24H PO SCH (10:00)
--- NOTE | 2022-12-07 11:45 | P.CRDCN ---
History of Present Illness Consult date: 12/07/22 Consult reason: atrial fibrillation Chief complaint: syncope History of present illness: History of present illness: Patient is a pleasant 67-year-old female with significant past medical history of degenerative disc disease, skin cancer, cervical spine fusion, hip replacement, and questionable connective tissue disorder who presented to the emergency department status post syncope and fall. She does not follow with a catcher filter tip. She has significant family history of her father dying in his 40s of an GA and her brother having open heart surgery. She denies smoking, alcohol use, uses THC gummies at night. Reports approximately one month ago she saw her PCP for near syncopal episodes, she wore a heart monitor at that time and reports it was unremarkable. 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 Denies any prior syncopal episodes. She reports she was getting frequent episodes of near syncope. Denies any chest pain or shortness of breath. She is active and exercises approximately 4 times a week without any issues. Labs reviewed: Troponin negative 3, WBC 6.8, hemoglobin 14.5, platelets 233, creatinine 0.63. She was started on a diltiazem drip and heparin drip. Head CT and C-spine CT were negative for acute findings. Chest x-ray reveals cardiomegaly. EKG showed A. fib with RVR 174 bpm. She also reports that she has had 2 pulsitile masses on her right wrist that her PCP believes are an aneurysm. REVIEW OF SYSTEMS: No fever or chills. No cough or expectoration. No diaphoresis. Patient denies headache, dizziness, blurred vision, double vision. Patient denies any stomach discomfort. No nausea, vomiting. No hematochezia. No hematemesis. Denies any black stools or blood in his stools. Denies dysuria or hematuria. No muscle weakness or numbness. No chest pain or pressure. PHYSICAL EXAMINATION: This is a 67 year-old female in no apparent distress at the time of my examination. HEENT: Head is atraumatic, normocephalic. Pupils are equal, round. Sclerae anicteric. Conjunctivae are clear. Mucous membranes of the mouth are moist. Neck is supple. There is no jugular venous distention. No carotid bruit is heard. CHEST EXAMINATION: Lungs are clear to auscultation. No chest wall tenderness is noted on palpation or with deep breathing. HEART EXAMINATION: Heart regular rate and rhythm. S1, S2 heard. No murmurs, gallops or rub. ABDOMEN: Soft, nontender. Bowel sounds are heard. No organomegaly noted. EXTREMITIES: 2+ peripheral pulses with no evidence of peripheral edema and no calf tenderness noted. Pulsatile mass right wrist. NEUROLOGIC EXAMINATION: Patient is awake, alert and oriented x3. Skin lac back of head stapled. IMPRESSION AND PLAN: New onset atrial fibrillation Syncope Palpitations Questionable connective tissue disorder PLAN: Echocardiogram shows EF 5560%, mild LVH. She is currently back in the normal sinus rhythm. We will stop lisinopril, start Toprol 25 mg by mouth daily. [id number] score is 2, recommend anticoagulation. Start Eliquis for stroke prevention. We will check a d-dimer, if this is positive we'll check CTA chest. If this is negative then okay to discharge home. Follow up in clinic in 1 week. I am dictating on behalf of Dr. Tra Aiken's history/physical and assessment/plan. Past Medical History Past Medical History: Cancer, Musculoskeletal Disorder, Osteoarthritis (OA) Additional Past Medical History / Comment(s): hx. 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, recent UTI-took couple courses of antibiotics-currently on one for 5 days History of Any Multi-Drug Resistant Organisms: None Reported Past Surgical History: Section, Hysterectomy, Tonsillectomy Additional Past Surgical History / Comment(s): neck fusion, colonoscopy, lit hotripsy 06-14-17 related to recent UTI Past Anesthesia/Blood Transfusion Reactions: No Reported Reaction Past Psychological History: No Psychological Hx Reported Smoking Status: Never smoker Past Alcohol Use History: None Reported Past Drug Use History: Marijuana - Past Family History Mother Family Medical History: No Reported History Medications and Allergies Home Medications Medication Instructions Recorded Confirmed Type Amitriptyline HCl [Elavil] 50 mg PO BID 06/08/17 12/06/22 History Cyclobenzaprine [Flexeril] 10 mg PO BID 06/08/17 12/06/22 History Multivit with Calcium,Iron,Min 1 tab PO DAILY 06/08/17 12/06/22 History [Women's Multivitamin] Ascorbic Acid [Vitamin C] 1,000 mg PO BID 12/06/22 12/06/22 History Biotin 100mg 100 mg PO BID 12/06/22 12/06/22 History Co Q-10 100mg 100 mg PO DAILY 12/06/22 12/06/22 History Lactobacillus Acidophilus 1 cap PO BID 12/06/22 12/06/22 History [Acidophilus Probiotic] Naproxen Sodium [Aleve] 220 mg PO BID 12/06/22 12/06/22 History Potassium Citrate Otc 1080mg 2 tab PO BID 12/06/22 12/06/22 History Pravastatin Sodium [Pravachol] 20 mg PO HS 12/06/22 12/06/22 History lisinopriL [Zestril] 10 mg PO HS 12/06/22 12/06/22 History Apixaban [Eliquis Starter Pack 5 - 10 mg PO DIRECTED 30 Days 12/07/22 Rx (for VTE)] #1 each Allergies Allergy/AdvReac Type Severity Reaction Status Date / Time Sulfa (Sulfonamide Allergy Unknown Verified 06/19/17 12:28 Antibiotics) Physical Exam Vitals: Vital Signs Temp Pulse Pulse Resp BP BP Pulse Ox 12/07/22 08:30 97.7 F 89 16 158/70 98 12/07/22 08:17 96 12/07/22 04:00 79 18 136/69 96 12/07/22 02:00 76 18 12/07/22 00:00 76 18 146/67 96 12/06/22 20:00 97.9 F 85 18 132/77 98 12/06/22 17:59 88 12/06/22 16:30 98 23 151/104 12/06/22 16:15 126 H 20 103/89 12/06/22 16:00 96.9 F L 116 H 101 H 16 127/76 114/81 96 12/06/22 15:45 129 H 31 H 128/75 12/06/22 15:30 124 H 31 H 125/96 12/06/22 15:15 111/88 12/06/22 15:00 134 H 11 L 132/84 12/06/22 14:45 149 H 42 H 124/75 100 12/06/22 14:30 170 H 43 H 122/75 97 12/06/22 14:15 168 H 20 118/81 98 12/06/22 14:00 130 H 20 114/97 97 12/06/22 13:08 97.5 F L 186 H 20 137/104 95 Intake and Output 12/06/22 12/07/22 12/07/22 22:59 06:59 14:59 Intake Total 583.333 70.993 Balance 583.333 70.993 Intake: Intake, IV Titration 43.333 70.993 Amount Diltiazem 125 mg In 43.333 Sodium Chloride 0.9% 100 ml @ 5 MG/HR 5 mls/hr IV .Q24H FORMERLY [facility], 1928–1983 Rx#:[id number] Heparin Sod,Pork in 0.45% 70.993 NaCl 25,000 unit In 0.45 % NaCl 1 250ml.bag @ 12 UNITS/KG/HR 7.947 mls/hr IV .Q24H [facility], [facility]–1983 Rx#: [id number] Oral 540 Other: Voiding Method Toilet Toilet # Voids 1 Weight 66.224 kg Results 12/07/22 07:16 12/07/22 07:16 Cardiac Enzymes 12/06/22 12/06/22 12/06/22 Range/Units 13:28 13:28 15:13 AST 27 (14-36) U/L Troponin I <0.012 <0.012 (0.000-0.034) ng/mL 12/06/22 12/07/22 Range/Units 18:35 07:16 AST 28 (14-36) U/L Troponin I <0.012 (0.000-0.034) ng/mL Coagulation 12/06/22 12/06/22 12/07/22 Range/Units 13:28 20:52 07:16 PT 9.8 (9.0-12.0) sec APTT 19.8 L 49.5 H 46.9 H (22.0-30.0) sec CBC 12/06/22 12/07/22 Range/Units 13:28 07:16 WBC 6.8 8.0 (3.8-10.6) k/uL RBC 5.31 4.97 (3.80-5.40) m/uL Hgb 14.5 13.4 (11.4-16.0) gm/dL Hct 43.1 41.4 (34.0-46.0) % Plt Count 233 221 (150-450) k/uL Comprehensive Metabolic Panel 12/06/22 12/07/22 Range/Units 13:28 07:16 Sodium 141 141 (137-145) mmol/L Potassium 3.9 4.0 (3.5-5.1) mmol/L Chloride 108 H 108 H (98-107) mmol/L Carbon Dioxide 24 26 (22-30) mmol/L BUN 21 H 15 (7-17) mg/dL Creatinine 0.63 0.53 (0.52-1.04) mg/dL Glucose 98 86 (74-99) mg/dL Calcium 9.2 8.9 (8.4-10.2) mg/dL AST 27 28 (14-36) U/L ALT 20 20 (4-34) U/L Alkaline Phosphatase 68 56 (38-126) U/L Total Protein 6.7 6.1 L (6.3-8.2) g/dL Albumin 4.2 3.8 (3.5-5.0) g/dL Current Medications Generic Name Dose Route Start Last Admin Trade Name Freq PRN Reason Stop Dose Admin Acetaminophen 650 mg 12/06/22 18:28 12/07/22 03:33 Acetaminophen Tab 325 Mg Tab PO 650 mg Q6HR PRN Administration Mild Pain (Scale 1 to 3) Hydrocodone Bitart/Acetaminophen 1 each 12/06/22 18:28 12/07/22 09:33 Hydrocodone/Apap 5-325mg 1 Each Tab PO 1 each Q6HR PRN Administration Moderate to Severe Pain (4-10) Amitriptyline HCl 50 mg 12/06/22 21:00 12/07/22 08:28 Amitriptyline Hcl 50 Mg Tab PO 50 mg BID SHAUNA Administration Ascorbic Acid 1,000 mg 12/06/22 21:00 12/07/22 08:28 Ascorbic Acid 500 Mg Tab PO 1,000 mg BID SHAUNA Administration Cyclobenzaprine HCl 10 mg 12/06/22 21:00 12/07/22 08:28 Cyclobenzaprine 10 Mg Tab PO 10 mg BID SHAUNA Administration Heparin Sodium (Porcine) 0 unit 12/06/22 14:35 Heparin Sodium 1,000 Un/Ml (10ml Vl) IV PER PROTOCOL PRN Low PTT Protocol Diltiazem HCl 125 mg/ Sodium 125 mls @ 5 mls/hr 12/06/22 13:30 12/06/22 18:47 Chloride IV 5 mg/hr .Q24H SHAUNA 5 mls/hr Infusion 5 MG/HR Heparin Sodium/Sodium Chloride 250 mls @ 7.947 mls/hr 12/06/22 14:45 12/07/22 00:00 25,000 unit/ Sodium Chloride IV 12 units/kg/hr .Q24H SHAUNA 7.947 mls/hr Titration Protocol 12 UNITS/KG/HR Lisinopril 10 mg 12/06/22 21:00 12/06/22 20:23 Lisinopril 10 Mg Tab PO 10 mg HS SHAUNA Administration Multivitamins 1 each 12/07/22 09:00 12/07/22 08:28 Multivitamins, Thera 1 Each Tab PO 1 each DAILY SHAUNA Administration Naloxone HCl 0.2 mg 12/06/22 14:35 Naloxone 0.4 Mg/Ml 1 Ml Vial IV Q2M PRN Opioid Reversal Ondansetron HCl 4 mg 12/06/22 14:35 Ondansetron 4 Mg/2 Ml Vial IVP Q8HR PRN Nausea And Vomiting Pravastatin Sodium 20 mg 12/06/22 21:00 12/06/22 20:23 Pravastatin Sodium 20 Mg Tab PO 20 mg HS SHAUNA Administration Intake and Output 12/06/22 12/07/22 12/07/22 22:59 06:59 14:59 Intake Total 583.333 70.993 Balance 583.333 70.993 Intake: Intake, IV Titration 43.333 70.993 Amount Diltiazem 125 mg In 43.333 Sodium Chloride 0.9% 100 ml @ 5 MG/HR 5 mls/hr IV .Q24H SHAUNA Rx#:[id number] Heparin Sod,Pork in 0.45% 70.993 NaCl 25,000 unit In 0.45 % NaCl 1 250ml.bag @ 12 UNITS/KG/HR 7.947 mls/hr IV .Q24H SHAUNA Rx#: [id number] Oral 540 Other: Voiding Method Toilet Toilet # Voids 1 Weight 66.224 kg 12/07/22 07:16 12/07/22 07:16
[2022-12-07] MEDS ORDERED: APIXABAN 5 MG TAB PO SCH ×2 (11:59→21:00)
[2022-12-07 12:43] VITALS: BP 145/79; PULSE 81; RESP 18
[2022-12-07 16:43] LABS: LDL Cholesterol,Calculated 65.4 mg/dL (0.0-131.0)
--- NOTE | 2022-12-08 21:04 | P.DS ---
Providers Date of admission: 12/06/22 14:35 Expected date of discharge: 12/07/22 Attending physician: Moe He Consults: 12/06/22 14:35 Consult Physician Routine Consulting Provider: Maxine Dang Consult Reason/Comments: afibRVR Do you want consulting provider notified?: Yes Primary care physician: Arsh Soriano [facility] Course: Final diagnosis Atrial fibrillation with fast ventricular rate Possible syncope and falls secondary to atrial fibrillation Scalp injury requiring 4 ghulam secondary to fall degenerative joint disease Discharge disposition Patient is being discharged in a stable condition with guarded prognosis to home. Patient will follow-up with Dr. Soriano in the outpatient setting upon discharge. Patient is to continue with eliquis 5 mg twice daily along with Lopressor and close outpatient follow-up with cardiology. Total time taken is greater than 35 minutes. Hospital course This is a 67-year-old female who was recently admitted with atrial fibrillation with RVR and also had a syncopal episode and fell and struck her head requiring 4 ghulam to the back of the scalp. Patient was evaluated by cardiology and is being transitioned oral Eliquis as well as metoprolol. Patient was monitored closely on telemetry monitoring and has been cleared by cardiology for outpatient follow-up. Please refer to cardiology notes for further HPI. Currently no reports of chest pain, shortness of breath, or palpitations. Patient is afebrile. No reports of nausea or vomiting and patient is tolerating diet. Patient will be discharged home today. Physical exam: Gen: This is a 67-year-old female who is awake, alert and oriented 3, well- developed, well-nourished HEENT: Head is atraumatic, normocephalic. Pupils equal, round. Sclerae is anicteric. NECK: Supple. No JVD. No lymphadenopathy. No thyromegaly. LUNGS: Diminished breath sounds bilaterally with No wheezes or rhonchi. No intercostal retractions. HEART: S1, S2 are muffled ABDOMEN: Soft. Bowel sounds are present. No masses. No tenderness. EXTREMITIES: No pedal edema. No calf tenderness. NEUROLOGICAL: Patient is awake, alert and oriented x3. Cranial nerves 2 through 12 are grossly intact. Please refer to medication reconciliation sheet for a list of medications. The impression and plan of care has been dictated by Becky Onofre, Nurse Practitioner as directed. Dr. Neri MD I have performed a history and examination and MDM of this patient, discussed the same with the dictator, and agree with the dictator's assessment and plan as written ,documented as a scribe. Based on total visit time, I have performed more than 50% of the visit. Patient Condition at Discharge: Stable Plan - Discharge Summary Discharge Rx Participant: Yes New Discharge Prescriptions: New Apixaban [Eliquis Starter Pack (for VTE)] 5 - 10 mg PO DIRECTED 30 Days #1 each HYDROcodone/APAP 5-325MG [[place] 5-325] 1 each PO Q6HR PRN #6 tab PRN Reason: Moderate To Severe Pain (4-10) Metoprolol Succinate (ER) [Toprol XL] 25 mg PO DAILY #30 tab Acetaminophen Tab [Tylenol] 650 mg PO Q6HR PRN tab PRN Reason: Mild Pain (Scale 1 To 3) Continue Amitriptyline HCl [Elavil] 50 mg PO BID Cyclobenzaprine [Flexeril] 10 mg PO BID Multivit with Calcium,Iron,Min [Women's Multivitamin] 1 tab PO DAILY Biotin 100mg 100 mg PO BID Potassium Citrate Otc 1080mg 2 tab PO BID Ascorbic Acid [Vitamin C] 1,000 mg PO BID Pravastatin Sodium [Pravachol] 20 mg PO HS Naproxen Sodium [Aleve] 220 mg PO BID Lactobacillus Acidophilus [Acidophilus Probiotic] 1 cap PO BID Co Q-10 100mg 100 mg PO DAILY Discontinued lisinopriL [Zestril] 10 mg PO HS Discharge Medication List Amitriptyline HCl [Elavil] 50 mg PO BID 06/08/17 [History] Cyclobenzaprine [Flexeril] 10 mg PO BID 06/08/17 [History] Multivit with Calcium,Iron,Min [Women's Multivitamin] 1 tab PO DAILY 06/08/17 [History] Ascorbic Acid [Vitamin C] 1,000 mg PO BID 12/06/22 [History] Biotin 100mg 100 mg PO BID 12/06/22 [History] Co Q-10 100mg 100 mg PO DAILY 12/06/22 [History] Lactobacillus Acidophilus [Acidophilus Probiotic] 1 cap PO BID 12/06/22 [History] Naproxen Sodium [Aleve] 220 mg PO BID 12/06/22 [History] Potassium Citrate Otc 1080mg 2 tab PO BID 12/06/22 [History] Pravastatin Sodium [Pravachol] 20 mg PO HS 12/06/22 [History] Acetaminophen Tab [Tylenol] 650 mg PO Q6HR PRN tab 12/07/22 [Rx] Apixaban [Eliquis Starter Pack (for VTE)] 5 - 10 mg PO DIRECTED 30 Days #1 each 12/07/22 [Rx] HYDROcodone/APAP 5-325MG [[place] 5-325] 1 each PO Q6HR PRN #6 tab 12/07/22 [Rx] Metoprolol Succinate (ER) [Toprol XL] 25 mg PO DAILY #30 tab 12/07/22 [Rx] Follow up Appointment(s)/Referral(s): Tra Aiken DO [STAFF PHYSICIAN] - 12/23/22 2:00 pm Arsh Soriano DO [Primary Care Provider] - 1-2 days (please call the schedule appt. tell them you were discharged from [facility] 12/07 for new onset afib. ) Patient Instructions/Handouts: A-fib (Atrial Fibrillation) (DC) Activity/Diet/Wound Care/Special Instructions: Activity Limited until follow-up Follow-up with primary care provider on discharge Follow-up with cardiology outpatient one week Continue taking medications as prescribed Follow-up with primary care providing regarding staple removal of 4 ghulam to the back of the head in the next 7-10 days. [place] were applied on 12/06/2022 Gently wash her hair around the ghulam and trying not to pick or pole at them and would recommend not brushing your hair around that area Continue Eliquis 5 mg twice daily Discharge Disposition: HOME SELF-CARE
--- NOTE | 2022-12-13 10:57 | CDI ---
Documentation Clarification Form Date: 12/13/2022 From: Britta Siddiqui Admit Date: 12/06/2022 2:35:00 PM Patient Name: Marta Bourgeois Visit Number: [id number] Discharge Date: 12/07/2022 3:02:00 PM ATTENTION: The Clinical Documentation Specialists (CDI) and [facility] Coding Staff appreciate your assistance in clarifying documentation. Please respond to the clarification below the line at the bottom and electronically sign. The CDI & [facility] Coding staff will review the response and follow-up if needed. Please note: Queries are made part of the Legal Health Record. If you have any questions, please contact the author of this message via ITS. Dr. Tra Aiken, Atrial Fibrillation is documented in both History and Physical on 12/06 and Discharge Summary on 12/07. Additional clarification regarding the type of atrial fibrillation is requested. History/Risk Factors: Syncope, Cardiomegaly, Cancer, Osteogenesis Imperfecta. Clinical Indicators: Per your consult- New onsetatrial fibrillation, Syncope, Palpitations & EF 5560%, mild LVH. CARDIOVASCULAR: S1 and S2.Irregular.Tachycardic, Atrial Fibrillation with fast ventricular heart rate. 12/06 EKG/telemetry: Vent rate 174bpm, QRS 97ms, QT/QTc 224/337 ms, Treatment: 12/06 Cardizem drip, closely monitor, 12/07 transitioned oral Eliquis as well as metoprolol. Please clarify the type of atrial fibrillation, if known: [ ] Chronic [ ] Permanent [ X ] Paroxysmal [ ] Persistent [ ] Other, please specify [ ] Unable to determine MTDD
== END 2022-12-07 15:02 | disposition home or self-care (01) | DRG 309 ==
LOC: EC 13:05 → 3SCARD 14:35
PROVIDERS: ADMIT Hospitalist; ATTEND Hospitalist
PROC: 0HQ0XZZ Repair Scalp Skin, External Approach (ICD-10-PCS; principal; 2022-12-06)
DX: I48.0 Paroxysmal atrial fibrillation (principal); Q78.0 Osteogenesis imperfecta; S01.01XA Laceration without foreign body of scalp, initial encounter; M19.90 Unspecified osteoarthritis, unspecified site; M41.9 Scoliosis, unspecified; F12.91 Cannabis use, unspecified, in remission; I51.7 Cardiomegaly; Z79.1 Long term (current) use of non-steroidal anti-inflammatories (NSAID); Z79.899 Other long term (current) drug therapy; Z98.1 Arthrodesis status; Z87.442 Personal history of urinary calculi; Z85.828 Personal history of other malignant neoplasm of skin; Z96.649 Presence of unspecified artificial hip joint; Z88.2 Allergy status to sulfonamides; Z82.41 Family history of sudden cardiac death; Z82.49 Family history of ischemic heart disease and other diseases of the circulatory system
CPT/HCPCS: 12001; 36415; 70450; 71045; 72125; 72170; 80053; 80061; 83605; 83735; 84100; 84484; 85025; 85379; 85610; 85730; 93005; 93306; 94760; 96365; 96366; 96368; 99291